=== PATIENT | female | born 1980 ===

== ENCOUNTER 2022-03-14 15:31 | Outpatient (REF) | payer MEDICAID, SELFPAY ==
--- NOTE | ~2022-03-14 | XR_ITS ---
EXAMINATION: XR CERVICAL SPINE XR THORACIC SPINE CLINICAL INFORMATION: Pain cervical thoracic spine COMPARISON: None TECHNIQUE: 5 views of the cervical spine 3 views of the thoracic spine FINDINGS: No acute visible fracture or dislocation. Very slight dextrocurvature of the upper lumbar spine. Very mild multilevel degenerative changes with osteophyte formation. Neuroforamen are intact bilaterally. Visualized dens is intact. Lateral masses are symmetric. Vertebral body heights and disc spaces are maintained. Prevertebral soft tissues are unremarkable. Posterior elements are intact. Paraspinal soft tissues are unremarkable. Visualized portions of the chest and upper abdomen are unremarkable. XR/XR cervical spine 5V IMPRESSION: 1. No acute visible fracture or dislocation. 2. Very slight dextrocurvature of the upper lumbar spine. 3. Very mild multilevel degenerative changes .
--- NOTE | ~2022-03-14 | XR_ITS ---
EXAMINATION: XR CERVICAL SPINE XR THORACIC SPINE CLINICAL INFORMATION: Pain cervical thoracic spine COMPARISON: None TECHNIQUE: 5 views of the cervical spine 3 views of the thoracic spine FINDINGS: No acute visible fracture or dislocation. Very slight dextrocurvature of the upper lumbar spine. Very mild multilevel degenerative changes with osteophyte formation. Neuroforamen are intact bilaterally. Visualized dens is intact. Lateral masses are symmetric. Vertebral body heights and disc spaces are maintained. Prevertebral soft tissues are unremarkable. Posterior elements are intact. Paraspinal soft tissues are unremarkable. Visualized portions of the chest and upper abdomen are unremarkable. XR/XR thoracic spine 3V IMPRESSION: 1. No acute visible fracture or dislocation. 2. Very slight dextrocurvature of the upper lumbar spine. 3. Very mild multilevel degenerative changes .
== END 2022-03-14 15:32 | disposition home or self-care (01) ==
LOC: HO.HMGCX 15:31
PROVIDERS: PCP Internal Medicine; Visit Provider Internal Medicine
DX: M54.2 Cervicalgia (principal); M54.6 Pain in thoracic spine
CPT/HCPCS: 72050; 72072

== ENCOUNTER 2022-04-13 12:47 | Outpatient (REF) | payer MEDICAID, SELFPAY ==
--- NOTE | ~2022-04-13 | MR_ITS ---
EXAMINATION: MR CERVICAL SPINE WITHOUT CONTRAST CLINICAL INFORMATION: 41-year-old with cervicalgia and right arm tingling. COMPARISON: None. TECHNIQUE: MRI of the cervical spine was obtained using routine sequences without contrast. FINDINGS: Alignment: Normal. Normal lordotic curvature. No spondylolisthesis or retrolisthesis. Craniocervical Junction/C1-C2 Articulations: Intact and aligned. Visualized Intracranial Structures: There is a nonspecific 3 mm curvilinear focus of subtle T2 hyperintensity in the upper michel in the midline, which is a nonspecific finding of uncertain etiology. Otherwise unremarkable. Vertebral Bodies: Normal height. Disc Spaces and Endplates: Intervertebral disc space heights are well-maintained. There are minor degrees of anterior marginal endplate spurring at C5-C6 and C6-C7. There is disc desiccation at C4-C5, C5-C6 and C6-C7. Bone Marrow: No significant marrow-replacing process or bone marrow edema. C2-C3: No disc herniation, DJD, canal or neuroforaminal stenosis. C3-C4: No disc herniation or canal stenosis. No significant facet arthropathy. There is uncovertebral spurring noted bilaterally without significant neural foraminal stenosis. C4-C5: Minimal central disc protrusion with minimal flattening of the central dural sac without cord impingement or canal stenosis. No significant DJD or neuroforaminal stenosis. C5-C6: Minimal shallow broad-based central disc protrusion with minimal indentation of the ventral thecal sac without cord impingement or canal stenosis. No significant DJD or neuroforaminal stenosis. C6-C7: Central disc herniation noted with jijp-fg-kzqucwuz flattening of the central dural sac without cord impingement. Mild central canal stenosis is noted. No significant DJD or neuroforaminal stenosis. Small perineural cyst in the right neural foramen. C7-T1: No disc herniation or canal stenosis. No significant DJD or neuroforaminal stenosis. Spinal Cord: The cervical and visualized upper thoracic spinal cord is normal in caliber throughout. There is a tiny central syrinx at the level of mid body C6, likely a benign finding. Otherwise normal. Extracranial Soft Tissues: Note is made of a 1.5 x 1.0 x 0.5 cm fluid signal structure along the posterolateral margin of the longus coli muscle on the left at the C6-C7 level, which is a nonspecific finding. MR/MR cervical spine wo con IMPRESSION: 1. Central disc herniation at C6-C7, with no definite cord impingement. There is associated mild central canal narrowing. 2. Minimal central disc protrusions at C5-C6 and C4-C5 as detailed above. Minor uncovertebral spurring noted at C3-C4. No significant neural foraminal stenosis. 3. Tiny central syrinx in the spinal cord at the C6 level, likely of a benign etiology. 4. 1.5 x 1.0 x 0.5 cm fluid signal structure in the left paravertebral soft tissues at the C6-C7 level, which is a nonspecific finding of indeterminate etiology, possibly a lymphatic anomaly. Recommend follow-up MRI soft tissue neck with contrast in 6 months to reassess.
== END 2022-04-13 12:48 | disposition home or self-care (01) ==
LOC: HO.MRI 12:47
PROVIDERS: Visit Provider Internal Medicine
DX: M54.2 Cervicalgia (principal)
CPT/HCPCS: 72141

== ENCOUNTER 2022-05-10 15:01 | Outpatient (REF) | payer MEDICAID, SELFPAY ==
--- NOTE | ~2022-05-10 | MR_ITS ---
EXAMINATION: MR THORACIC SPINE WITHOUT CONTRAST CLINICAL INFORMATION: Spinal pain. COMPARISON: Thoracic spine radiographs 03/14/2022. TECHNIQUE: MRI of the thoracic spine was obtained using routine sequences without contrast. FINDINGS: Alignment is normal. Vertebral heights are preserved. No acute bone marrow signal changes. There is disc desiccation at multiple levels without substantial loss of intervertebral disc height. There is a small central protrusion located at T11-T12 causing minimal indentation of the thecal sac. Annular contours are otherwise normal and there is no canal or neuroforaminal compromise. No cord compression or abnormal intramedullary signal changes. Limited visualization of the intrathoracic anatomy reveals no abnormal finding. Specifically there is no paraspinal soft tissue mass or collection. MR/MR thoracic spine wo con IMPRESSION: There is a small central protrusion at T11-T12. Otherwise normal thoracic spine MRI. No canal or neuroforaminal compromise. No cord compression or abnormal intramedullary signal changes.
== END 2022-05-10 15:02 | disposition home or self-care (01) ==
LOC: HO.MRI 15:01
PROVIDERS: Visit Provider Internal Medicine
DX: M54.6 Pain in thoracic spine (principal)
CPT/HCPCS: 72146

== ENCOUNTER → 2023-01-08 15:01 | Outpatient (BNVA) | payer MEDICAID, SELFPAY | PROVIDERS: PCP Internal Medicine; Visit Provider Psychiatry & Neurology Neurology | DX: G43.709 Chronic migraine without aura, not intractable, without status migrainosus (principal); G44.40 Drug-induced headache, not elsewhere classified, not intractable; T39.95XA Adverse effect of unspecified nonopioid analgesic, antipyretic and antirheumatic, initial encounter; G44.86 Cervicogenic headache; M54.2 Cervicalgia | CPT/HCPCS: 99202 ==

== ENCOUNTER 2023-04-25 15:03 | Outpatient (AMB) | payer MEDICAID, SELFPAY ==
[2023-04-25 15:05] VITALS: BP 140/102; PULSE 74; O2SAT 100; BMI 31.2
--- NOTE | 2023-04-25 15:05 | MHC.OFFVIS ---
Intake Vital Signs 04/25/23 15:05 Height 5 ft 2 in Weight 170 lb 6 oz BMI 31.2 BP 140/102 H Blood Pressure Location Rt brachial Position Sitting Pulse 74 Pulse Source Pulse Oximeter Pulse Oximetry (%) 100 Oxygen Delivery Method Room Air Intake Visit Reasons: Dizziness/Cervical Pain - LVM Intake Note: Patient presents for dizziness and headaches. Patient states My migraines went away I feel like I know what it is, I'm allergic to MSG and I think those where the triggers,I still have an area on my left side of head that feels like achy when I move my head. can we try something like botox? Allergies ibuprofen [From Motrin] Allergy (Verified 04/25/23 15:09) GI bleed levofloxacin [From Levaquin] Allergy (Verified 04/25/23 15:09) Migraine Sulfa (Sulfonamide Antibiotics) Allergy (Verified 04/25/23 15:09) Diarrhea Medication List - Last Reconciled 04/25/23 by GARY Mccord amitriptyline 10 mg PO BEDTIME uqkuckk-kwbrsjkspzpki-gcqudcty 250-250-65 mg (Excedrin Extra Strength) 1 tab PO Q4-6H PRN ufwxdfgriy-juqjeozeysmot-ecsy 50-325-40 mg 1 tab PO Q6H PRN fluticasone propionate 50 mcg/actuation 1 spray intranasal DAILY magnesium oxide 400 mg PO BEDTIME methocarbamol 750 mg PO BEDTIME propranolol 40 mg PO BID riboflavin (vitamin B2) 400 mg PO QAM rimegepant (Nurtec ODT) 75 mg PO Q OTHER DAY PRN sumatriptan succinate 50 mg PO Q2-4H PRN HPI HPI Comments History of Present Illness Details 42-yr-old female presents for f/u visit. Pt denies any significant interval medical changes. Pt reports she has had less migraine overall. She is now having 1 severe migraine day a week and 6-7 migraine days before/during her menses. She is also having 3-4 mild-mod headache days per week. She has stopped consuming MSG- believes this was triggering the worsening migraine attacks. She tried Nurtec x's 1- caused dizziness. Amitriptyline was ineffective. She is having a constant focal aching/pressure pain in her right occipital region. This is not a/w photo/phonophobia. When the pain is severe, she has to stop in her tracks and her mind goes blank. Certain head movement make the pain worse. She has tried OTC creams/ointmenst, cranial sacral massage, chiropractic tx, PT- still doing exercises- none has helped. [facility] Medical History (Updated 04/25/23 @ 15:55 by GARY Mccord) Analgesic rebound headache Anemia Arthritis Cervicogenic headache Chronic migraine without aura Degenerative cervical disc GERD (gastroesophageal reflux disease) HTN (hypertension) Neck pain Surgical History Hx of tonsillectomy S/P LASIK surgery of both eyes Family History Mother HTN (hypertension) Heart disease Father HTN (hypertension) Liver cancer Brother Chronic headaches Sister Chronic headaches Social History Alcohol intake: never Patient Tobacco Use Status: Never used Tobacco Review of Systems Const All systems reviewed & are unremarkable except as noted in HPI and below Physical Exam Vital Signs: Last Vital Signs Pulse 74 04/25/23 15:05 BP 140/102 H 04/25/23 15:05 Pulse Ox 100 04/25/23 15:05 Oxygen Delivery Method Room Air 04/25/23 15:05 BMI result Body Mass Index 31.2 Const General: cooperative and no acute distress Orientation/consciousness: patient oriented x3 HEENT Head: Yes normocephalic Resp Effort & Inspection: normal respiratory effort and able to speak in complete sentences Back/Spine/Pelvis Other: Bilateral posterior cervical tightness. Cervical ROM: limited, more so w/ left lateral rotation and flexion- elicits right occipital and posterior neck pain. Neuro General: patient oriented x3, gait normal and CN's II-XI intact bilaterally Cognition (Neuro): normal cognition Motor exam (neuro): 5/5 motor strength present throughout Psych Appearance: grossly normal Mental Status: mental status grossly normal Speech and movement: Normal speech and movement present Affect: normal affect Attitude: cooperative Thought process: Normal thought process present Thought content: Normal thought content present Insight: Good insight present (Psych) Judgement: Good judgement present (Psych) Assessment & Plan Assessment & Plan (1) Chronic migraine without aura: Code(s): G43.709 - Chronic migraine without aura, not intractable, without status migrainosus (2) Unilateral occipital headache: Code(s): R51.9 - Headache, unspecified Plan Pt is advised to undergo brain MRI w/o to assess for intracranial etiology of headaches, right occipital pain. Pt is quite anxious r/t worry she may have a secondary rather than primary headcahe d/o. For acute headache treatment: Trial Naratriptan prn- in hopes this is better tolerated [facility] Sumatriptan caused racing heart rate. Acute migraine medication contraindications: None at this time For chronic migraine w/o aura prevention: Continue Riboflavin 400mg qam Continue Magnesium 400mg qhs Continue Propranolol 40mg bid. Stopped Amitriptyline. Start Botox 155 units IM q 12 weeks Previous migraine prevention medication trials: Amitriptyline- not effective. Migraine prevention medication contraindications: Not at this time Pt to follow-up in 3 months or sooner prn. Orders: Orders MR head/brain wo con Today I10 - Essential (primary) hypertension, R41.3 - Other amnesia, R51.9 - Headache, unspecified Medications: New onabotulinumtoxinA (Botox) inject 155 units IM across forehead, scalp, and neck 200 units IM ONCE 12 weeks 1 ea 3RF G43.709 - Chronic migraine without aura, not intractable, without status migrainosus naratriptan take 1/2 - 1 tab at onset of headache; if no relief may repeat 1 tab after at least 4 hrs; max = 2 tabs/24 hrs orally PRN; 30 days 12 tabs 6RF migraine headache Coding Level of Care Code Est Pt Level 4 (72018) Diagnoses Chronic migraine without aura G43.709 Unilateral occipital headache R51.9
== END 2023-04-25 15:59 | disposition home or self-care (01) ==
PROVIDERS: Visit Provider Nurse Practitioner Family
DX: G43.709 Chronic migraine without aura, not intractable, without status migrainosus (principal); R51.9 Headache, unspecified
CPT/HCPCS: 99214

== ENCOUNTER → 2023-04-25 15:03 | Outpatient (BNVA) | payer MEDICAID, SELFPAY | PROVIDERS: Visit Provider Nurse Practitioner Family | DX: G43.709 Chronic migraine without aura, not intractable, without status migrainosus (principal); I10 Essential (primary) hypertension; Z79.899 Other long term (current) drug therapy | CPT/HCPCS: 99212; 99214 ==

== ENCOUNTER 2023-06-28 16:00 | Outpatient (REF) | payer MEDICAID, SELFPAY ==
--- NOTE | ~2023-06-28 | MR_ITS ---
EXAMINATION: MR BRAIN WITHOUT CONTRAST CLINICAL INFORMATION: Headache. COMPARISON: None available. TECHNIQUE: MRI of the brain was obtained using routine sequences without contrast. FINDINGS: No focal restricted diffusion is demonstrated to suggest acute or subacute cerebral ischemia. No evidence of acute or chronic hemorrhagic products on heme-sensitive imaging. Few nonspecific scattered periventricular and deep white matter T2 FLAIR hyperintensities. No additional parenchymal signal abnormalities. The ventricles are normal in morphology and size. No abnormal mass effect. No midline shift. Normal appearance of the pituitary gland. Normal positioning of the cerebellar tonsils. Normal arterial and venous vascular flow voids are present. Normal, homogeneous marrow signal. Prominent mucosal thickening of the right sphenoid air cell. Partial atelectasis of the right maxillary sinus. Mild mucosal thickening of the remaining paranasal sinuses. No signal abnormalities within the mastoids. MR/MR head/brain wo con IMPRESSION: 1. No acute intracranial abnormalities. 2. Minimal nonspecific white matter changes. 3. Prominent right sphenoid sinus mucosal disease. Partial atelectasis of the right maxillary sinus.
== END 2023-06-28 16:01 | disposition home or self-care (01) ==
LOC: HO.MRI 16:00
PROVIDERS: PCP Internal Medicine; Visit Provider Nurse Practitioner Family
DX: R51.9 Headache, unspecified (principal); I10 Essential (primary) hypertension; R41.3 Other amnesia
CPT/HCPCS: 70551

== ENCOUNTER → 2023-08-10 14:56 | Outpatient (BNVA) | payer MEDICAID, SELFPAY | PROVIDERS: PCP Internal Medicine; Visit Provider Nurse Practitioner Family | DX: G43.709 Chronic migraine without aura, not intractable, without status migrainosus (principal); R51.9 Headache, unspecified; J32.9 Chronic sinusitis, unspecified | CPT/HCPCS: 99212 ==

== ENCOUNTER 2023-09-06 13:44 | Outpatient (REF) | payer MEDICAID, SELFPAY | END 2023-09-06 13:45 | disposition home or self-care (01) | LOC: HO.CHCLDS 13:44 | PROVIDERS: PCP Internal Medicine; Referring Provider Nurse Practitioner Family; Visit Provider Internal Medicine | DX: I10 Essential (primary) hypertension (principal); J32.9 Chronic sinusitis, unspecified; J32.3 Chronic sphenoidal sinusitis; D64.9 Anemia, unspecified | CPT/HCPCS: 36415; 80053; 85025; 85652; 86140 ==

== ENCOUNTER 2024-08-25 10:28 | Outpatient (REF) | payer MEDICAID, SELFPAY ==
[2024-08-25 15:06] LABS: MANUAL DIFF FLAG NO
[2024-08-25 15:31] LABS: Albumin Level 4.3 g/dL (3.5-5.0); Anion Gap 12 (12-20); Aspartate Amino Transferase 21 U/L (5-31); Bilirubin Total 0.4 mg/dL (0.0-1.0); Blood Urea Nitrogen 10 mg/dL (9-16); Calcium 9.4 mg/dL (8.4-10.2); Carbon Dioxide 26 mmol/L (22-29); Chloride 105 mmol/L (96-108); Estimated Glomerular Filt Rate > 60; Glucose Random 65 mg/dL (60-115); Potassium 4.2 mmol/L (3.3-5.1); Sodium 139 mmol/L (135-145); Total Protein 7.4 g/dL (6.5-8.0)
[2024-08-25 15:39] LABS: Basophils Absolute Auto 0.1 X10*3/uL (0.0-0.2); Basophils Percent Auto 1.2 % (0-2); Eosinophils Absolute Auto 0.2 X10*3/uL (0.0-0.4); Eosinophils Percent Auto 3.8 % (0-4); Hematocrit 36.3 % (37.0-47.0); Imm Gran Abs Auto 0.02 X10*3/uL (0.00-0.03); Imm Gran Pct Auto 0.4 % (0.0-0.4); Lymphocytes Absolute Auto 1.5 X10*3/uL (1.2-4.9); Lymphocytes Percent Auto 29.9 % (20-40); Mean Corpuscular HGB Conc 33.1 g/dl (31.0-35.0); Mean Corpuscular Hemoglobin 28.6 pg (27.0-33.0); Mean Corpuscular Volume 86.6 fL (80.0-98.0); Mean Platelet Volume 9.6 fL (9.4-12.3); Monocytes Absolute Auto 0.3 X10*3/uL (0.1-1.2); Monocytes Percent Auto 6.8 % (2-11); Neutrophils Absolute Auto 2.9 x10*3/uL (2.0-8.3); Neutrophils Percent Auto 57.9 % (45-73); Platelet Count 324 X10*3/uL (160-400); Red Blood Count 4.19 X10*6/uL (4.20-5.50); Red Cell Distribution Width 13.1 % (11.0-16.0)
[2024-08-25 15:54] LABS: Vitamin D 25-OH Total 69.5 ng/mL (>30)
[2024-08-25 15:58] LABS: Alanine Aminotransferase 16 U/L (0-31); Alkaline Phosphatase 70 U/L (39-117)
[2024-08-25 16:00] LABS: Folate 12.3 ng/mL (> or = 4.0); Vitamin B12 685 pg/mL (200-900)
== END 2024-08-25 10:29 | disposition home or self-care (01) ==
LOC: HO.CHCLDS 10:28
PROVIDERS: Visit Provider Family Medicine
DX: R42 Dizziness and giddiness (principal)
CPT/HCPCS: 36415; 80053; 82306; 82607; 82746; 84443; 85025

== ENCOUNTER 2024-10-09 10:36 | Outpatient (REF) | payer MEDICAID, SELFPAY ==
--- OUTSIDE RECORDS SUMMARY | 2024-10-09 10:37 | XMS_ITS | Encounter Summary ---
Author Organization [employer] Address [address] [place] [address] Care Team Providers Care Equipment Sales Specialist Name Role Phone James Kurtz MD Primary Care Prov ider Encounter Details Date Type Department Care Team (Late st Contact Info) Description 03/03/2024 Orders Only [facility] [address] [place], [place] [id number] James Kurtz MD [address] [place] [address] Social History Tobacco Use Types Packs/Day Years Used Date Smoking Tobacco: Never Smokeless Tobacco: Never Depression Answer Date Recorded Patient Health Questionnaire-9 Score 0 10/25/2022 Housing Stability Answer Date Recorded What is your housing situation today? I have joann perez 01/10/[address] you li ve. Do you have problems with any of the following? None of the above 01/10/2024 Food Insecurity Answer Date Recorded Within the past 12 months, y ou worried that your food would run out before you got money to buy more: Never True 01/10/2024 Within the past 12 months,th e food you bought just didn't last and you didn't have enough money to get more: Never True 05/2024 Transportation Answer Date Recorded In the past 12 months, has l ack of transportation kept you from medical appts, meetings, work or from getting things needed for daily living? No 01/10/2024 Utilities Answer Date Recorded In the past 12 months, has t he electric, gas, oil or water company threatened to shut off services in your home? No 01/10/2024 Depression Answer Date Recorded Patient Health Questionnaire-2 Score 0 10/25/2022 Comments No Sex and Gender Information Value Date Recorded Sex Assigned at Female 07/03/2022 10:20 AM EDT Legal Sex Female 10:20 AM EDT Gender Identity Female 08/31/2024 10:25 AM EST Sexual Orientation Choose not to disclose 2021 10:20 AM EDT documented as of this encounter Plan of Treatment Not on file documented as of this encounter Visit Diagnoses Not on filedocumented in this encounter Additional Health Concerns Assessment Noted Time PHQ-9 Depression Total Score: 0 10/25/19 23 8:49 AM EST documented as of this encounter Care Teams Equipment Sales Specialist Relationship Specialty Start Date End Date James Kurtz MD [address] [place] [id number] PCP - General Internal Medicine 03/09/22 documented as of this encounter
--- OUTSIDE RECORDS SUMMARY | 2024-10-09 10:37 | XMS_ITS | Clinical Summary ---
Author Organization [employer] Address [address] [facility] [address] [place] [address] Care Team Providers Care Automation Lead Name Role Phone James Kurtz MD Primary Care Prov ider Allergies Active Allergy Reactions Criticality Noted Date Comments Ibuprofen 07/06/2016 rectal bleeding if taken for long periods of time Levofloxacin 07/06/2016 Sulfa Antibiotics 11/16/2014 Other reaction(s): Nausea/Vomiting nausea Medications Blood Pressure kit To use daily 1 kit 12/15/19 23 Active Diclofenac Sodium (Voltaren) 1 % gel Use TID 100 g 11 07/19/20 23 Active SM Slow Release Iron 45 MG tablet controlled-rel ease TAKE ONE TABLET BY MOUTH EVERY DAY 30 tablet 3 11/29/19 24 Active multivitamin with minerals (Cerovite) 18-400 mg-mcg tablet tablet Take 1 tablet by mouth Once per day. 90 tablet 3 04/16/20 24 025 Active Tirzepatide-We ight Management (Zepbound) 5 MG/0.5ML solution Inject 5 mg under the skin 1 (one) time per week. 3 mL 10/07/19 25 Active docusate sodium (Colace) 50 MG capsule Take 1 capsule (50 mg) by mouth 2 times daily. 60 capsule 10/07/19 25 025 Active Tirzepatide-We ight Management (Zepbound) 7.5 MG/0.5ML solution auto-injector Inject 0.5 mL (7.5 mg) under the skin 1 (one) time per week. 3 mL 1 10/07/19 25 Active methocarbamol (Robaxin) 750 MG tabletIndicati ons:Cervicogen ic headache Take 1 tablet (750 mg) by mouth 4 times daily for 10 days. 40 tablet 12/05/19 025 Discontinued( erapy completed) albuterol 108 (90 Base) MCG/ACT inhalerIndicat ions:Acute cough Inhale 2 puffs every 4 (four) hours if needed for wheezing. 18 g 12/15/19 025 Discontinued( erapy completed) Drospirenone (Slynd) 4 MG tablet Take 1 tablet by mouth in the morning. 28 tablet 5 06/26/20 025 Discontinued( erapy completed) propranolol (Inderal) 40 MG tablet TAKE ONE TABLET TWICE DAILY 120 tablet 07/24/20 025 Discontinued( erapy completed) azelastine (Astelin) 0.1 % nasal spray Administer 1 spray into each nostril 2 times daily. Use in each nostril as directed 30 mL 12 08/15/20 025 Discontinued( erapy completed) diclofenac (Cataflam) 50 MG tablet Take 1 tablet (50 mg) by mouth 3 times daily. 30 tablet 01/17/20 025 Discontinued( erapy completed) cetirizine (ZyrTEC) 10 MG tablet Take 1 tablet (10 mg) by mouth Once per day. 90 tablet 1 01/17/20 025 Discontinued( erapy completed) pseudoephedrin e (Sudafed) 60 MG tablet Take 1 tablet (60 mg) by mouth every 6 (six) hours if needed for congestion for up to 10 days. 30 tablet 05/07/20 025 Discontinued( erapy completed) guaiFENesin (Mucinex) 600 MG 12 hr tabletIndicati ons:Acute cough Take 2 tablets (1,200 mg) by mouth 2 times daily. Do not crush, chew, or split. 30 tablet 06/17/20 025 Discontinued( erapy completed) Semaglutide-We ight Management (Wegovy) 2.4 MG/0.75ML solution auto-injector Inject 2.4 mg under the skin 1 (one) time per week. 3 mL 5 10/30/20 24 025 Discontinued(Th erapy completed) Tirzepatide-We ight Management (Zepbound) 5 MG/0.5ML solution Inject 5 mg under the skin 1 (one) time per week. 3 mL 3 09/26/19 25 025 Discontinued Tirzepatide 7.5 MG/0.5ML solution auto-injector Inject 7.5 mg under the skin 1 (one) time per week. 3 mL 10/07/19 25 025 Discontinued(Th erapy completed) lidocaine-pril ocaine (Emla) 2.5-2.5 % cream Apply topically 1 (one) time for 1 dose. 30 g 3 10/07/19 25 025 Active Problems Problem Noted Date Diagnosed Date Raynaud's phenomenon 08/31/2024 Overview (08/31/2024): - White discoloration of finger and clinical presentation consistent with Raynaud phenomenon - reviewed lifestyle interventions/precautions Assessment & Plan (10/07/2024 9:49 PM EST): Blood test ordered to evalaute for scleroderma and sle ordered, follow up results Assessment & Plan (08/31/2024 10:47 AM EST): - recent onset (> 29 y/o) - differential includes primary vs secondary - consider testing for autoimmune condition: FUNMILAYO w/ reflex, ESR Chronic right shoulder pain 06/02/2024 Acute pain of right shoulder 06/02/2024 Overweight (BMI 25.0-29.9) 04/17/2024 Assessment & Plan (04/17/2024 9:03 AM EDT): Good improvement in weight loss. Patient should continue with current dose of wegovy, it has helped her improving her high blood pressure, her headaches episode are less frequent and in addition she is getting the benefit of cardiac protection. Overall she should continue with current dose, follow up in 2-3 months. Encounter for screening mamm ogram for malignant neoplasm of breast 10/31/2023 Assessment & Plan (10/31/2023 8:23 AM EST): Done on jun 2023 Seasonal allergic rhinitis 10/31/2023 Assessment & Plan (01/18/2024 1:05 AM EDT): Prescribed Cetirizine (Zyrtec) 10 MG tablet Assessment & Plan (10/31/2023 8:25 AM EST): Will send azelastine, avoid common triggers Screen for colon cancer 10/31/2023 Assessment & Plan (10/31/2023 8:26 AM EST): Will send cologuard, no red flags Obesity (BMI 30-39.9) 10/31/2023 Assessment & Plan (01/18/2024 1:11 AM EDT): Reports she feels some of her injections had not been effective as she expected. Discussed calorie deficit, recommended reduction of 20-30% of maintenance calories. Recommended to decrease soda and sugary beverage consumption. Recommended at least 20 g per meal of protein to assist with satiety. Recommended at least 150 min/week of moderate intensity exercise. F/u when pt reaches to 2.5 mg of Semaglutide. Assessment & Plan (10/31/2023 8:27 AM EST): Will start on wegozeinaby, risk vs benefits discussed Physical exam 10/31/2023 Pelvic pain 05/25/2023 Assessment & Plan (05/25/2023 9:33 AM EDT): Left pelvic pain, no fever/chills, refers last mentraul period was more blood abundant than on previous, she refers has hx of ovarian cyst dx while >4yrs ago. Will order a pelvic ultrasound and depending on results will decide next step, may take Nsaids for pain Iron deficiency anemia jeanneon elvira to inadequate dietary iron intake 02/14/2023 Assessment & Plan (02/14/2023 8:53 AM EDT): Will place orders for iron levels, no sign of bleeding Migraine without aura and wi thout status migrainosus, not intractable 01/04/2023 Assessment & Plan (02/14/2023 8:55 AM EDT): Improved grealy, she changed her diet, since the past 2-3 weeks she has been off all medications,, she is onl taking magnesium and vitamin b complex, follow up with neurology Assessment & Plan (01/04/2023 2:36 PM EDT): Continue fioricet for acute pain, will start prophylaxis with propranolol 40mg BID, neurology appointment scheduled for May, will try to find a sooner appointment, will provide work excuse letter for today. Primary hypertension 12/31/2022 Assessment & Plan (04/17/2024 9:03 AM EDT): Controlled with diet/weight loss, keep bp log, target <140/90 Assessment & Plan (10/31/2023 8:23 AM EST): Controlled with diet, continue daily monitoring, target <140/90 Assessment & Plan (02/14/2023 8:52 AM EDT): Controlled, she is not taking any medications, being managed with diet, refers at home constantly below 140/90 Assessment & Plan (12/31/2022 10:21 PM EDT): Controlled on hydrochlorothiazide, reinforced low sodium diet and exercise as tolerated Cervical pain 12/31/2022 Assessment & Plan (02/14/2023 8:56 AM EDT): Improved, she will let me know if wants to be followed at physical therapy Assessment & Plan (12/31/2022 10:22 PM EDT): Chronic cervical pain, saw ortho, has tried PT/chriropractor, will refer to neurology, since she continue with episode of dizziness 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 Assessment & Plan (10/25/2022 8:53 AM EST): Patient was found with incidental fluid signal structure at left paravertebral soft tissue, follow up MRI was recommended in 6 months, will place order Dizziness 10/25/2022 Assessment & Plan (10/25/2022 8:58 AM EST): Patient complains of right sided dizziness, has fam hx of stroke and TIA, will place order for carotid ultrasound Encounters Date Type Department Care Team Description 10/07/2024 1:00 PM EST Office Visit [facility] [address] [place] [address] James Kurtz MD Raynaud's disease without gangrene (Primary Dx); Obesity (BMI 30-39.9); Dietary counseling; Exercise counseling; Raynaud's phenomenon without gangrene; Overweight (BMI 25.0-29.9); Physical exam 10/07/2024 Travel 09/30/2024 Patient Outreach [facility] [address] [place] [address] James Kurtz MD Pre-visit Planning (SDOH unable to complete.) 09/26/2024 Orders Only [facility] [address] [place] [address] James Kurtz MD 08/29/2024 1:00 PM EST Office Visit [facility] [address] [place] [address] Arlene Soto, AD TERMINAL MAKEUP OPERATOR Other abnormalities of heart beat (Primary Dx); Shortness of breath; Raynaud's phenomenon without gangrene 08/29/2024 Travel 08/25/2024 Telephone [facility] [address] [place] [address] Alesha Marcelino MD 07/14/2024 Telephone [facility] [address] [place] [address] James Kurtz MD Wegovy no longer covered September 03, 2024 from Last 3 Months Social History Tobacco Use Types Packs/Day Years Used Date Smoking Tobacco: Never Smokeless Tobacco: Never Tobacco Cessation:Counseling Given: Not Answered Depression Answer Date Recorded Patient Health Questionnaire-9 Score 0 10/07/2024 Patient Health Questionnaire-9 Score 0 10/07/2024 Last PHQ-9: Questionnaire Data Not on file 0 10/07/2024 Housing Stability Answer Date Recorded What is [...] Date Recorded Patient Health Questionnaire-2 Score 0 10/07/2024 Comments No Sex and Gender Information Value Date Recorded Sex Assigned at Female 07/03/2022 10:20 AM EDT Legal Sex Female 10:20 AM EDT Gender Identity Female 08/31/2024 10:25 AM EST Sexual Orientation Choose not to disclose 2021 10:20 AM EDT Last Filed Vital Signs Vital Sign Reading Time Taken Comments Blood Pressure 114/81 10/07/2024 1:12 PM EST Pulse 77 10/07/2024 1:12 PM EST Temperature 36.2 ??C (97.1 ??F) 10/07/2024 1:12 PM ES T Respiratory Rate 20 10/07/2024 1:12 PM EST Oxygen Saturation 99% 08/29/2024 1:28 PM EST Inhaled Oxygen Concentration - - Weight 62.6 kg (138 lb) 10/07/2024 1:12 PM EST Height 157.5 cm (5' 2 ) 10/07/2024 1:12 PM EST Body Mass Index 25.24 10/07/2024 1:12 PM EST Plan of Treatment Health Maintenance Due Date Last Done Comments CT Colonography 1979 Colonoscopy 1979 FIT 1979 FOBT 1979 HIV Screening 1979 Lipid Panel 1979 Sigmoidoscopy 1979 Family Planning (PISQ) 1994 Hepatitis C Screening 1997 Hepatitis B Vaccines (2 of 3 - 19+ 3-dose series) 11/13/2005 10/16/2005 COVID-19 Vaccine (3 - 2023- season) 2024 05/30/2021, 09/01/2020 Influenza Vaccine (#1) 2024 SDOH Screening 01/09/2025 01/10/2024 Mammogram 2025 Tobacco Screening 08/29/2025 08/29/2024 Alcohol/Substance Use Screening 10/07/2025 10/07/2024 Depression Screening 10/07/2025 10/07/2024, 10/07/19 25 Cervical Cancer Screening 02/03/2026 HPV/Cotest 02/03/2026 Pap Smear 02/03/2026 02/03/2021 Colorectal Cancer Screening 07/01/2027 FIT DNA/Cologuard 07/01/2027 07/01/2024 DTaP/Tdap/Td Vaccines (5 - Td or Tdap) 10/24/2028 10/24/2018, 10/24/2018, 03/14/2017, Additional history exists Zoster Vaccines (1 of 2) 2029 RSV Patients and Patients Aged 60 years or older (1 - 1-dose 75+ series) 2054 HIB Vaccines Aged Out No longer eligi ble based on patient's age to complete this topic HPV Vaccines Aged Out No longer eligi ble based on patient's age to complete this topic Hepatitis A Vaccines Aged Out No long er eligible based on patient's age to complete this topic IPV Vaccines Aged Out No longer eligi ble based on patient's age to complete this topic Meningococcal Vaccine Aged Out No kasie bhavna eligible based on patient's age to complete this topic Pneumococcal Vaccine: Pediatrics (0 to 5 Years) and At-Risk Patients (6 to 49) Years) Aged Out No longer eligible based on patient's age to complete this topic RSV under 20 months Aged Out No longe r eligible based on patient's age to complete this topic Rotavirus Vaccines Aged Out No longer eligible based on patient's age to complete this topic Procedures Procedure Name Priority Date/Time Associated Diagnosis Comments ECG 12-LEAD Routine 08/31/2024 10:41 AM EST Other abnormalities of heart beat Shortness of breath VITAMIN D,25-OH,TOTAL,IA Routine 08/25/2024 10:31 AM EST Dizziness VITAMIN B12/FOLATE, SERUM PANEL Routine 08/25/2024 10:31 AM EST Dizziness TSH W/REFLEX TO FT4 Routine 08/25/2024 1 0:31 AM EST Dizziness COMPREHENSIVE METABOLIC PANEL Routine 08/25/2024 10:31 AM EST Dizziness CBC WITH AUTO DIFFERENTIAL Routine 08/25/2024 10:31 AM EST Dizziness LAB COLOGUARD?? COLON CANCER SCREEN Routine 07/01/2024 6:55 AM EDT Screen for colon cancer PAP SMEAR Routine 02/03/2021 12:00 AM EDT from Last 3 Months or Most Recently Relevant to Health Maintenance Results * ECG 12 lead (08/31/2024 10:41 AM EST) Narrative Arlene Soto FNP - 08/31/2024 10:41 AM EST pR: 106/168 ms QRS: 94 ms QT/Qtc: 392/423 ms HR: 70 bpm NSR Arlene VEGA ECG ORDERABLES Final Result * Vitamin D, 25-Hydroxy, Total, Immunoassay (08/25/2024 10:31 AM EST) Vitamin D 25-OH Total 69.5 >30 ng/mL [facility] Comment:Health Based Referen ce Values*< 20 ng/mL [id number] ng/mL Insufficient> 30 ng/mL Sufficient*Danish VALE. N Engl J Med. 2007;357:266-280Care must be taken in interpreting Vitamin D results fromdifferent laboratories and methodologies. Published datademonstrated that results from patients undergoinghemodialysis may show a negative bias when tested withvarious automated 25-OH vitamin D assays when compared toLC-MS/MS.When testing samples from patients whose predominant form ofVitamin D is Vitamin D2, such as patients receiving VitaminD2 supplementation, results that are subtherapeutic shouldbe confirmed with another method such as LC-MS/MS. Blood Venous blood specimen / Unknown 08/25/2024 10:31 AM EST 08/25/2024 3:01 PM EST Alesha Marcelino MD LAB BLOOD ORDERABLES Final Re sult Performing Organization Address [facility] Co de Phone Number [facility] [address] [place] [phone] * Vitamin B12 (Cobalamin) and Folate Panel, Serum (08/25/2024 10:31 AM EST) Vitamin B12 685 200 - 900 pg/mL [facility] Comment:NORMAL 200-900 PG/ML INDETERMINATE 160-199 PG/ML DEFICIENT < 160 PG/ML Folate 12.3 > or = 4.0 ng/mL [facility] Comment:Reference Values:> o r = 4.0 ng/mL< 4.0 ng/mL suggests folate deficiency Methotrexate, aminopterin and folinic acid(leucovorin) are chemotherapeutic agents whose molecularstructures are similar to folate; therefore, the Architectfolate assay cannot be used for patients using these drugs. Blood Venous blood specimen / Unknown 08/25/2024 10:31 AM EST 08/25/2024 3:01 PM EST Alesha Marcelino MD LAB BLOOD ORDERABLES Final Re sult Performing Organization Address [facility] Co de Phone Number [facility] [address] [place] [phone] * TSH W/Reflex to FT4 (08/25/2024 10:31 AM EST) TSH reflex Free T4 1.20 0.32 - 4.0 uIU/mL [facility] Blood Venous blood specimen / Unknown 08/25/2024 10:31 AM EST 08/25/2024 3:01 PM EST us Alesha Marcelino MD LAB BLOOD ORDERABLES Final Re sult [facility] [address] [place] [phone] * (ABNORMAL) CBC auto differential (08/25/2024 10:31 AM EST) Pathologist [facility] White Blood Count 5.0 4.8 - 10.8 X10*3/uL [facility] Red Blood Count 4.19(L) 4.20 - 5.50 X10*6/uL [facility] Hemoglobin 12.0 12.0 - 16.0 g/dl [facility] Hematocrit 36.3(L) 37.0 - 47.0 % [facility] Mean Corpuscular Volume 86.6 80.0 - 98.0 fL [facility] Mean Corpuscular Hemoglobin 28.6 27.0 - 33.0 pg [facility] Mean Corpuscular HGB Conc 33.1 31.0 - 35.0 g/dl [facility] Red Cell Distribution Width 13.1 11.0 - 16.0 % [facility] Platelet Count 324 160 - 400 X10*3/uL [facility] Mean Platelet Volume 9.6 9.4 - 12.3 fL [facility] Neutrophils Percent Auto 57.9 45 - 73 % [facility] Imm Gran Pct Auto 0.4 0.0 - 0.4 % [facility] Lymphocytes Percent Auto 29.9 20 - 40 % [facility] Monocytes Percent Auto 6.8 2 - 11 % [facility] Eosinophils Percent Auto 3.8 0 - 4 % [facility] Basophils Percent Auto 1.2 0 - 2 % [facility] NRBC Pct Auto 0.0 0.0 - 0.2 /100WBC [facility] Neutrophils Absolute Auto 2.9 2.0 - 8.3 x10*3/uL [facility] Imm Gran Abs Auto 0.02 0.00 - 0.03 X10*3/uL [facility] Lymphocytes Absolute Auto 1.5 1.2 - 4.9 X10*3/uL [facility] Monocytes Absolute Auto 0.3 0.1 - 1.2 X10*3/uL [facility] Eosinophils Absolute Auto 0.2 0.0 - 0.4 X10*3/uL [facility] Basophils Absolute Auto 0.1 0.0 - 0.2 X10*3/uL [facility] NRBC Abs Auto 0.000 0.0 - 0.012 X10*3/uL [facility] Blood Venous blood specimen / Unknown 08/25/2024 10:31 AM EST 08/25/2024 3:01 PM EST us Alesha Marcelino MD LAB BLOOD ORDERABLES Final Re sult [facility] [address] [place] [phone] * Comprehensive Metabolic Panel (08/25/2024 10:31 AM EST) Sodium 139 135 - 145 mmol/L [facility] Potassium 4.2 3.3 - 5.1 mmol/L [facility] Chloride 105 96 - 108 mmol/L [facility] Carbon Dioxide 26 22 - 29 mmol/L [facility] Anion Gap 12 12 - 20 [facility] Urea Nitrogen (BUN) 10 9 - 16 mg/dL [facility] Creatinine, Serum 0.85 0.5 - 1.4 mg/dL [facility] Estimated Glomerular Filt Rate >60 [facility] Comment:Chronic Kidney Disea se: Estimated GFR < 60 mL/min/[id number] Kidney Disease: Estimated GFR < 15 mL/min/1.73m2 Glucose 65 60 - 115 mg/dL [facility] Calcium 9.4 8.4 - 10.2 mg/dL [facility] Bilirubin, Total 0.4 0.0 - 1.0 mg/dL [facility] Aspartate Amino Transferase 21 5 - 31 U/L [facility] Alanine Aminotransferase 16 0 - 31 U/L [facility] Total Protein 7.4 6.5 - 8.0 g/dL [facility] Albumin Level 4.3 3.5 - 5.0 g/dL [facility] Alkaline Phosphatase 70 39 - 117 U/L [facility] Blood Venous blood specimen / Unknown 08/25/2024 10:31 AM EST 08/25/2024 3:01 PM EST us Alesha Marcelino MD LAB BLOOD ORDERABLES Final Re sult Performing Organization Address City/State/[facility] Co de Phone Number [facility] [address] [place] [phone] * Cologuard?? colon cancer screening (07/01/2024 6:55 AM EDT) Cologuard Result Negative Negative 07/09/20 24 4:27 AM EST [facility] (CLIA #:[id number]) Comment: NEGATIVE TEST RESULT. A negative Cologuard result indicates a low likelihood that a colorectal cancer (CRC) or advanced adenoma (adenomatous polyps with more advanced pre-malignant features) ??is present. The chance that a person with a negative Cologuard test has a colorectal cancer is less than 1 in 1500 (negative predictive value >99.9%) or has an ??advanced adenoma is less than ??5.3% (negative predictive value 94.7%). These data are based on a prospective cross-sectional study of 10,000 individuals at average risk for colorectal cancer who were screened with both Cologuard and colonoscopy. (Omar Amaya al, N Engl J Med 2014;370(14):1286- 1297) The normal value (reference range) for this assay is negative. COLOGUARD RE-SCREENING RECOMMENDATION: Periodic colorectal cancer screening is an important part of preventive healthcare for asymptomatic individuals at average risk for colorectal cancer. ??Following a negative Cologuard result, the [place] [employer] and U.S. Multi-Society Task Force screening guidelines recommend a Cologuard re-screening interval of 3 years. References: [place] [employer] Guideline for Colorectal Cancer Screening: https://www.cancer.org/cancer/egukl-mpgudc-wfwaeg/shjxsqmvb-picbhgftu-byxylcc/ac s-rec ommendations.html.; Dwayne DK, Braxton CR, Malka MonterrosoK, Colorectal Cancer Screening: Recommendations for Physicians and Patients from the U.S. Multi-Society Task Force on Colorectal Cancer Screening , Am J Gastroenterology 2017; 112:8226-7301. TEST DESCRIPTION: Composite algorithmic analysis of stool DNA-biomarkers with hemoglobin immunoassay. ?? Quantitative values of individual biomarkers are not reportable and are not associated with individual biomarker result reference ranges. Cologuard is intended for colorectal cancer screening of adults of either sex, 45 years or older, who are at average-risk for colorectal cancer (CRC). Cologuard has been approved for use by the U.S. FDA. The performance of Cologuard was established in a cross sectional study of average-risk adults aged 50-84. Cologuard performance in patients ages 45 to 49 years was estimated by sub-group analysis of near-age groups. Colonoscopies performed for a positive result may find as the most clinically significant lesion: colorectal cancer [4.0%], advanced adenoma (including sessile serrated polyps greater than or equal to 1cm diameter) [20%] or non- advanced adenoma [31%]; or no colorectal neoplasia [45%]. These estimates are derived from a prospective cross-sectional screening study of 10,000 individuals at average risk for colorectal cancer who were screened with both Cologuard and colonoscopy. (Omar Amaya al, N Engl J Med 2014;370(14):9997-7691.) Cologuard may produce a false negative or false positive result (no colorectal cancer or precancerous polyp present at colonoscopy follow up). A negative Cologuard test result does not guarantee the absence of CRC or advanced adenoma (pre-cancer). The current Cologuard screening interval is every 3 years. ([place] [employer] and U.S. Multi-Society Task Force). Cologuard performance data in a 10,000 patient pivotal study using colonoscopy as the reference method can be accessed at the following location: www.[employer]/results. Additional description of the Cologuard test process, warnings and precautions can be found at www.cologuard.com. Stool specimen (specimen) 07/01/2024 6:55 AM EDT 07/02/2024 12:20 PM EDT James Duarte MD LAB MOLECULAR DIAG NOSTICS ORDERABLES Final Result Performing Organization Address City/[facility]/ZIP Co de Phone Number [facility] (CLIA #:[id number]) [address] [place] [address], * Pap Smear (02/03/2021 12:00 AM EDT) Swab Historical Provider LAB CYTOLOGY ORDERABLES F inal Result [facility] [address] [place] [address] from Last 3 Months or Most Recently Relevant to Health Maintenance Insurance [facility] C3 Care Teams Automation Lead Relationship Specialty Start Date End Date James Kurtz MD [address] [place] [phone] PCP - General Internal Medicine 03/09/22
--- OUTSIDE RECORDS SUMMARY | 2024-10-09 10:37 | XMS_ITS | Encounter Summary ---
Author Organization [employer] Address [address] [facility] 7 [place] [address] Care Team Providers Care Loan Documentation Specialist Name Role Phone James Kurtz MD Primary Care Prov ider Reason for Visit * Reason Comments Pre-visit Planning SDOH unable to compl ete. Encounter Details Date Type Department Care Team ([facility] st Contact Info) Description 09/30/2024 Patient Outreach [facility] CHC MED & PEDS [address] [place], [place] [phone] James Kurtz MD [address] [place] [address] Pre-visit Planning (SDOH unable to complete.) Social History Tobacco Use Types Packs/Day Years [...] AM EDT documented as of this encounter Progress Notes * Sheri Stoner - 09/30/2024 4:05 PM EST REJI Raphael placed successful outbound call to patient for pre-visit planning. Patient name and confirmed. Patient confirms appt date and time, and has transportation arrangements. Biggest concern for appointment at this time is no concerns. Appropriate screenings completed in anticipation ofappointment. documented in this encounter Plan of Treatment Not on file documented as of this encounter Visit Diagnoses Not on filedocumented in this encounter Additional Health Concerns Assessment Noted Time PHQ-9 Depression Total Score: 0 10/25/19 23 8:49 AM EST documented as of this encounter Care Teams Loan Documentation Specialist Relationship Specialty Start Date End Date James Kurtz MD [address] [place] [id number] PCP - General Internal Medicine 03/09/22 documented as of this encounter
--- OUTSIDE RECORDS SUMMARY | 2024-10-09 10:37 | XMS_ITS | Encounter Summary ---
Author Organization [employer] Address [address] [facility] 7t [place] [address] Care Team Providers Care Loan Counselor Name Role Phone James Kurtz MD Primary Care Prov ider Encounter Details Date Type Department Care Team (Latest Contact Info) Description 10/07/2024 Travel Social History Tobacco Use Types Packs/Day Years [...] Noted Time PHQ-9 Depression Total Score: 0 10/07/19 25 1:16 PM EST documented as of this encounter Care Teams Loan Counselor Relationship Specialty Start Date End Date James Kurtz MD [address] [place] [phone] PCP - General Internal Medicine 03/09/22 documented as of this encounter
--- OUTSIDE RECORDS SUMMARY | 2024-10-09 10:37 | XMS_ITS | Encounter Summary ---
Author Organization [employer] Address [address] [facility] 7t [place] [address] Care Team Providers Care Matchbook Maker Name Role Phone James Kurtz MD Primary Care Prov ider Encounter Details Date Type Department Care Team ([facility] st Contact Info) Description 10/07/2024 1:00 PM EST Office Visit [facility] CHC MED & PEDS [address] [place], [place] [phone] James Kurtz MD [address] [place] [address] Raynaud's disease without gangrene (Primary Dx); Obesity (BMI 30-39.9); Dietary counseling; Exercise counseling; Raynaud's phenomenon without gangrene; Overweight (BMI 25.0-29.9); Physical exam Social History Tobacco Use Types Packs/Day Years [...] AM EDT documented as of this encounter Last Filed Vital Signs Vital Sign Reading Time Taken Comments Blood Pressure 114/81 10/07/2024 1:12 PM EST Pulse 77 10/07/2024 1:12 PM EST Temperature 36.2 ??C (97.1 ??F) 10/07/2024 1:12 PM ES T Respiratory Rate 20 10/07/2024 1:12 PM EST Oxygen Saturation - - Inhaled Oxygen Concentration - - Weight 62.6 kg (138 lb) 10/07/2024 1:12 PM EST Height 157.5 cm (5' 2 ) 10/07/2024 1:12 PM EST Body Mass Index 25.24 10/07/2024 1:12 PM EST documented in this encounter Progress Notes * James Duarte MD - 10/07/2024 1:00 PM EST Subjective Patient ID: Almaz Pierre is a 44 y.o. female who presents for No chief complaint on file.. HPI Patient was scheduled for a physical exam Review of Systems Constitutional: Negative for chills, fatigue and fever. Respiratory: Negative for cough and shortness of breath. Cardiovascular: Negative for chest pain and palpitations. Gastrointestinal: Negative for abdominal distention and blood in stool. Endocrine: Negative for polydipsia, polyphagia and polyuria. Musculoskeletal: Negative for joint swelling. Objective Physical Exam Constitutional: Appearance: Normal appearance. HENT: Right Ear: Tympanic membrane, ear canal and external ear normal. There is no impacted cerumen. Left Ear: Tympanic membrane, ear canal and external ear normal. There is no impacted cerumen. Cardiovascular: Rate and Rhythm: Normal rate and regular rhythm. Heart sounds: No murmur heard. Pulmonary: Effort: Pulmonary effort is normal. No respiratory distress. Breath sounds: No stridor. No wheezing or rhonchi. Abdominal: General: Abdomen is flat. There is no distension. Palpations: There is no mass. Tenderness: There is no abdominal tenderness. Hernia: No hernia is present. Musculoskeletal: General: Normal range of motion. Cervical back: Normal range of motion. No rigidity or tenderness. Lymphadenopathy: Cervical: No cervical adenopathy. Neurological: General: No focal deficit present. Mental Status: She is alert and oriented to person, place, and time. Psychiatric: Mood and Affect: Mood normal. Behavior: Behavior normal. Assessment/Plan Problem List Items Addressed This Visit Obesity (BMI 30-39.9) Relevant Orders Lipid Panel, Standard Physical exam Unremarkable physical examination, will order blood work to evalaute for fatigue and raynauds, encoraged exercise as tolerated Overweight (BMI 25.0-29.9) Continue zepbound, keep low carb/no sugar diet, exercise as tolerated Raynaud's phenomenon Blood test ordered to evalaute for scleroderma and sle ordered, follow up results Other Visit Diagnoses Raynaud's disease without gangrene - Primary Relevant Orders Systemic Sclerosis (Scleroderma) 12 Antibodies Panel C-reactive Protein Iron And Total Iron Binding Capacity Vitamin B12 (Cobalamin) and Folate Panel, Serum Vitamin D, 25-Hydroxy, Total, Immunoassay Dietary counseling Exercise counseling documented in this encounter Miscellaneous Notes * Assessment & Plan Note - James Duarte MD - 10/07/2024 9:49 PM ESTAssociated Problem(s): Raynaud's phenomenon Blood test ordered to evalaute for scleroderma and sle ordered, follow up results documented in this encounter Plan of Treatment Scheduled Orders Name Type Priority Associated Diagnoses Orde r Schedule Systemic Sclerosis (Scleroderma) 12 Antibodies Panel Lab Routine Raynaud's disease without gangrene Expected: 10/07/2024 (Approximate), Expires: 10/07/2025 C-reactive Protein Lab Routine Raynaud's disease without gangrene Expected: 10/07/2024 (Approximate), Expires: 10/07/2025 Iron And Total Iron Binding Capacity Lab Routine Raynaud's disease without gangrene Expected: 10/07/2024, Expires: 10/07/2025 Vitamin B12 (Cobalamin) and Folate Panel, Serum Lab Routine Raynaud's disease without gangrene Expected: 10/07/2024 (Approximate), Expires: 10/07/2025 Vitamin D, 25-Hydroxy, Total, Immunoassay Lab Routine Raynaud's disease without gangrene Expected: 10/07/2024 (Approximate), Expires: 10/07/2025 Lipid Panel, Standard Lab Routine Obesity (BMI 30-39.9) Expected: 10/07/2024 (Approximate), Expires: 10/07/2025 documented as of this encounter Visit Diagnoses Diagnosis Raynaud's disease without gangrene- Primary Obesity (BMI 30-39.9) Dietary counseling Dietary surveillance and counseling Exercise counseling Raynaud's phenomenon without gangrene Overweight (BMI 25.0-29.9) Overweight Physical exam Unspecified general medical examination documented in this encounter Additional Health Concerns Assessment Noted Time PHQ-9 Depression Total Score: 0 10/07/19 25 1:16 PM EST documented as of this encounter Care Teams Matchbook Maker Relationship Specialty Start Date End Date James Kurtz MD [address] [place] [phone] PCP - General Internal Medicine 03/09/22 documented as of this encounter
--- OUTSIDE RECORDS SUMMARY | 2024-10-09 10:37 | XMS_ITS | Encounter Summary ---
Author Organization [employer] Address 75 [facility] 7t [place] [address] Care Team Providers Care Computing Systems Mechanic Name Role Phone James Kurtz MD Primary Care Prov ider Encounter Details Date Type Department Care Team ([facility] st Contact Info) Description 09/26/2024 Orders Only [facility] CHC MED & PEDS [address] [place], [place] [phone] James Kurtz MD [address] [place] [address] Social History Tobacco Use Types Packs/Day Years [...] documented as of this encounter Care Teams Computing Systems Mechanic Relationship Specialty Start Date End Date James Kurtz MD [address] [place] [phone] PCP - General Internal Medicine 03/09/22 documented as of this encounter
--- OUTSIDE RECORDS SUMMARY | 2024-10-09 10:38 | XMS_ITS | Encounter Summary ---
Author Organization [employer] Address [address] [facility] 7t [place] [address] Care Team Providers Care Welding Machine Operator Plasma Arc Name Role Phone James Kurtz MD Primary Care Prov ider Encounter Details Date Type Department Care Team ([facility] st Contact Info) Description 05/11/2023 Orders Only [facility] CHC MED & PEDS [address] [place] [address] James Kurtz MD [address] [place] [address] Social History Tobacco Use Types Packs/Day Years Used Date Smoking Tobacco: Never Smokeless Tobacco: Never Depression Answer Date Recorded Patient Health Questionnaire-9 Score 0 10/25/2022 Depression Answer Date Recorded Patient Health Questionnaire-2 Score 0 10/25/2022 Comments Unknown Sex and Gender Information Value Date Recorded [...] documented as of this encounter Care Teams Welding Machine Operator Plasma Arc Relationship Specialty Start Date End Date James Kurtz MD [address] [place] [address] PCP - General Internal Medicine 03/09/22 documented as of this encounter
--- OUTSIDE RECORDS SUMMARY | 2024-10-09 10:38 | XMS_ITS | Encounter Summary ---
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 Procedures Mr Neck Soft Tissue only w/ and w/o Contrast James Kurtz MD [address] [place] [address] Phone: tel: fax: [address] Phone: tel: fax: Referral ID Status Reason Start Date Expiration Date Visits Re quested Visits Authorized [id number] Closed 11/28/2022 11/28/2023 1 1 Encounter Details Date Type Department Care Team (Late st Contact Info) Description 11/28/2022 Orders Only [facility] CHC MED & PEDS [address] [place] [address] James Kurtz MD [address] [place] [address] 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 Social History Tobacco Use Types Packs/Day Years Used Date Smoking Tobacco: Never Assessed Depression Answer Date Recorded Patient Health Questionnaire-9 [...] as of this encounter Plan of Treatment Scheduled Orders Name Type Priority Associated Diagnoses Orde r Schedule Mr Neck Soft Tissue only w/ and w/o Contrast Imaging Routine 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
--- OUTSIDE RECORDS SUMMARY | 2024-10-09 10:38 | XMS_ITS | Encounter Summary ---
Author Organization [employer] Address 75 [facility] 7t [place] [address] Care Team Providers Care Dealer Support Technician Name Role Phone James Kurtz MD Primary Care Prov ider Reason for Visit * Reason Comments Med Refill Encounter Details Date Type Department Care Team ([facility] st Contact Info) Description 05/07/2024 Refill [facility] CHC MED & PEDS [address] [place], [place] [phone] James Kurtz MD [address] [place] [address] Social History Tobacco Use Types Packs/Day Years Used Date Smoking Tobacco: Never Smokeless Tobacco: Never Depression Answer Date Recorded Patient Health Questionnaire-9 Score 0 10/25/2022 Housing Stability Answer Date Recorded What is your housing situation today? I have joannsilvio perez 01/10/[address] you [...] the past 12 months, has t he [employer], gas, oil or water company threatened to [...] documented as of this encounter Care Teams Dealer Support Technician Relationship Specialty Start Date End Date James Kurtz MD [address] [place] [address] PCP - General Internal Medicine 03/09/22 documented as of this encounter
[2024-10-09 14:16] LABS: C Reactive Protein < 0.10 mg/dL (< or = 0.50); Iron 103 mcg/dL (30-160); Percent Iron Saturation 33 % (15-50); Total Iron Binding Capacity 312 mcg/dL (228-428); Unsaturated Iron Binding 209 ug/dL
[2024-10-09 14:31] LABS: Vitamin D 25-OH Total 36.4 ng/mL (>30)
[2024-10-09 14:36] LABS: Erythrocyte Sedimentation Rate 8 MM/HR (0-20)
[2024-10-09 14:44] LABS: Folate 15.5 ng/mL (> or = 4.0); Vitamin B12 682 pg/mL (200-900)
[2024-10-15 10:54] LABS: Centromere Protein A Ab <11 SI (<11); Centromere Protein B Ab <11 SI (<11); Fibrillarin Ab <11 SI (<11); PM SCL 100 Ab <11 SI (<11); PM SCL 75 Ab <11 SI (<11); RNA Polymerase III RP11 Ab <11 SI (<11); RNA Polymerase III RP155 Ab <11 SI (<11); SCL-70 Extractable Nuclear Ab <11 SI (<11); Th-To Ab <11 SI (<11); U1 SNRNP RNP 70KD <11 SI (<11); U1 SNRNP RNP A <11 SI (<11); U1 SNRNP RNP C <11 SI (<11)
[2024-10-15 11:58] LABS: Anti Nuclear Antibody Screen NEGATIVE (NEGATIVE)
== END 2024-10-09 10:37 | disposition home or self-care (01) ==
LOC: HO.CHCLDS 10:36
PROVIDERS: Registered Nurse; Visit Provider Internal Medicine
DX: I73.00 Raynaud's syndrome without gangrene (principal)
CPT/HCPCS: 36415; 82306; 82607; 82746; 83540; 84182; 85652; 86038; 86140; 86235

== ENCOUNTER 2025-01-21 08:30 | Outpatient (REF) | payer MEDICAID, SELFPAY ==
[2025-01-21 15:03] LABS: Cholesterol 192 mg/dL (<200); HDL Cholesterol 59 mg/dL (>40); LDL Cholesterol Calculated 114 mg/dL (<100); Triglycerides 95 mg/dL (<150)
== END 2025-01-21 08:31 | disposition home or self-care (01) ==
LOC: HO.CHCLDS 08:30
PROVIDERS: Visit Provider Internal Medicine
DX: E66.9 Obesity, unspecified (principal)
CPT/HCPCS: 36415; 80061

== ENCOUNTER 2025-04-17 11:08 | Outpatient (REF) | payer MEDICAID, SELFPAY ==
--- NOTE | ~2025-04-17 | XR_ITS ---
EXAMINATION: XR ANKLE 3 OR MORE VIEWS LEFT HISTORY: ankle pain COMPARISON: There are no prior studies available for comparison. FINDINGS: Three views of the left ankle are submitted. Osseous mineralization is normal. There is no fracture or dislocation. The joint spaces are preserved. The soft tissues are unremarkable. XR/XR ankle LT min 3V IMPRESSION: Unremarkable examination of the left ankle. Electronically signed by: Steven Cason MD 04/17/2025 11:30 AM EDT
--- OUTSIDE RECORDS SUMMARY | 2025-04-17 11:17 | XMS_ITS | Encounter Summary ---
Author Organization [employer] Address [address] [place] [address] 7t [place] [address] Care Team Providers Care Instructional Systems Design Consultant Name Role Phone James Kurtz MD Primary Care Prov ider Encounter Details Date Type Department Care Team ([facility] st Contact Info) Description 12/02/2024 Orders Only [facility] [address] [place] [address] Provider, MD Camila Social History Tobacco Use Types Packs/Day Years [...] as of this encounter Plan of Treatment Upcoming Encounters Date Type Department Care Team (Late st Contact Info) Description 04/20/2025 1:00 PM EDT Telemedicine [facility] MED & PEDS [address] [place] [address] James Kurtz MD [address] [place] [address] documented as of this encounter Visit Diagnoses Not on filedocumented in this encounter Additional Health Concerns Assessment Noted Time PHQ-9 Depression Total Score: 0 10/07/19 25 1:16 PM EST documented as of this encounter Care Teams Instructional Systems Design Consultant Relationship Specialty Start Date End Date James Kurtz MD [address] [place] [address] PCP - General Internal Medicine 03/09/22 documented as of this encounter
== END 2025-04-17 11:09 | disposition home or self-care (01) ==
LOC: HO.HMGCX 11:08
PROVIDERS: PCP Internal Medicine; Visit Provider Internal Medicine
DX: M25.572 Pain in left ankle and joints of left foot (principal); G89.29 Other chronic pain
CPT/HCPCS: 73610

== ENCOUNTER → 2025-04-17 11:12 | Outpatient (BNV) | payer MEDICAID, SELFPAY | PROVIDERS: PCP Internal Medicine; Visit Provider Radiology Diagnostic Radiology | DX: M25.572 Pain in left ankle and joints of left foot (principal) | CPT/HCPCS: 73610 ==

== ENCOUNTER 2025-04-24 17:53 | Outpatient (REF) | payer MEDICAID, SELFPAY ==
--- NOTE | ~2025-04-24 | MR_ITS ---
EXAMINATION: MR LOWER EXTREMITY NON JOINT WITHOUT CONTRAST, LEFT CLINICAL INFORMATION: Left lower leg pain COMPARISON: None available. TECHNIQUE: MRI of the left lower leg was performed using routine sequences on a high-field scanner. FINDINGS: Soft tissues: There is no muscle edema, atrophy, or fatty streaking. No mass or fluid collection is evident. Neurovascular: No gross abnormality. Bone marrow: There are no bone marrow lesions. Bone marrow signal is physiologic. There is no definite periosteal edema. MR/MR Tibia/Fib LT wo Contrast IMPRESSION: Unremarkable left lower leg MRI. Electronically signed by: Gutierrez Low MD 04/27/2025 10:16 AM EDT
== END 2025-04-24 17:54 | disposition home or self-care (01) ==
LOC: HO.MRI 17:53
PROVIDERS: PCP Internal Medicine; Visit Provider Internal Medicine
DX: M79.605 Pain in left leg (principal)
CPT/HCPCS: 73718

== ENCOUNTER → 2025-04-24 18:00 | Outpatient (BNV) | payer MEDICAID, SELFPAY | PROVIDERS: PCP Internal Medicine; Visit Provider Radiology Diagnostic Radiology | DX: M79.662 Pain in left lower leg (principal) | CPT/HCPCS: 73718 ==